=== PATIENT | male | born 1995 | race Caucasian/White ===

== ENCOUNTER 2024-08-16 11:50 | Emergency (ER) | payer SELFPAY ==
[2024-08-27 14:11] LABS: Clarity Clear (Clear); Glucose, Urine (Dipstick) Normal (Negative); Leukocyte Negative (Negative); Nitrite Negative (Negative); Protein, Urine (Dipstick) Negative (Neg-Trace)
[2024-08-27 14:12] LABS: Bacteria/HPF None Seen HPF (None Seen); Bilirubin Negative (Negative); Blood, Urine Negative (Negative); CAUTI Indications for Culture Pelvic or flank pain; Ketone, Urine Negative (Negative); RBC/HPF None Seen HPF (0-3); Squamous Epithelial 0-3 HPF (0-3); Urobilinogen Normal mg/dL (Less than 2); WBC/HPF None Seen HPF (0-3)
[2024-08-27 14:13] LABS: Urine Culture Reflex No No
== END 2024-08-16 14:03 | disposition home or self-care (01) ==
LOC: CSHERS 11:50
DX: N50.811 Right testicular pain (principal)
CPT/HCPCS: 76870; 81001; 93976